=== PATIENT | male | born 1955 | race Caucasian/White ===

== ENCOUNTER 2018-05-10 11:44 | Emergency (ER) | payer SELFPAY ==
[~2018-05-10] VITALS: Ht 180.3 cm; Wt 113.4 kg
[~2018-05-10 11:44] MED LIST changes: -HYDR-4226 PO
[2018-05-10] MEDS ORDERED: meTOprolol TARTRATE 25 MG (LOPRESSOR) TABLET PO ONE (13:00)
[2018-05-10] MEDS ORDERED: HYDR-4226 PO (13:10)
--- NOTE | 2018-05-10 13:10 | ED Cardiac General ---
History of Present Illness General Chief Complaint: Cardiac/General Problems Stated Complaint: BP ISSUES Nursing Triage Note: THE PT IS AMBULATORY TO THE ROOM WITHOUT DIFFICULTY. NO DISTRESS IS SEEN ON ARRIVAL. LOC IS NORMAL FOR THE PT. THE PT WAS SENT HERE BY [facility] FOR HTN. 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 He was seen there after a fall off of culvert yesterday while at work. He had x-ray and CT done showing left shoulder fracture. He was found to be hypertensive and sent here to ER. He is asymptomatic except for left shoulder fracture. . 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 Timing/Duration: constant Severity: moderate Location: central [facility] [employer]IEF CONTROLLER STATION: No ASA po CHIEF CONTROLLER STATION: No Allergies and Home Medications Allergies Coded Allergies: lidocaine (Verified Adverse Reaction, Severe, 07/04/12) hypotension Home Medications Atenolol 25 Mg Tablet, 25 MG PO DAILY, (Reported) Hctz/Telmisartan 1 Each Tablet, 1 EACH PO DAILY, (Reported) Hydrocodone/Acetaminophen 1 Each Tablet, 1 EACH PO Q6H PRN for PAIN-MODERATE Prescribed by: RADHA SARMIENTO on 05/10/18 1310 Patient Home Medication List Home Medication List Reviewed: Yes Review of Systems Review of Systems Constitutional: see HPI EENTM: No Symptoms Reported Respiratory: No Symptoms Reported Cardiovascular: See HPI Gastrointestinal: No Symptoms Reported Genitourinary: No Symptoms Reported Musculoskeletal: see HPI Skin: no symptoms reported Psychiatric/Neurological: No Symptoms Reported Past Ufmgagc-[id number]-Fwiouk Hx Patient Social History Recent Foreign Travel: No Contact w/Someone Who Travel: No Recent Infectious Disease Expo: No Recent Hopitalizations: No Physical Abuse: No Sexual Abuse: No Mistreated: No Fear: No Immunizations Up To Date Tetanus Booster (TDap): Less than 5yrs Seasonal Allergies Seasonal Allergies: No Past Medical History Surgeries: No Respiratory: No Cardiac: No Neurological: No Genitourinary: No Gastrointestinal: No Musculoskeletal: No Endocrine: No HEENT: No Cancer: No Psychosocial: No Integumentary: No Blood Disorders: No Physical Exam Vital Signs Vital Signs - First Documented 05/10/18 12:21 Temp 97.3 Pulse 99 Resp 18 B/P (MAP) 190/130 (150) Pulse Ox 96 Capillary Refill : Less Than 3 Seconds Height, Weight, BMI Height: 5'11.00" Weight: 250lbs. oz. 113.293853gp; BMI Method:Estimated General Appearance: No Apparent Distress, Obese HEENT: PERRL/EOMI, TMs Normal Neck: Full Range of Motion, Normal Inspection Respiratory: No Accessory Muscle Use, No Respiratory Distress Cardiovascular: Regular Rate, Rhythm, Normal Peripheral Pulses Gastrointestinal: Normal Bowel Sounds, Non Tender, Soft Extremity: Normal Capillary Refill, Normal Inspection, Other (limited range of motion left shoulder due to pain.) Neurologic/Psychiatric: Alert, Oriented x3 Skin: Normal Color, Warm/Dry Progress/Results/Core Measures Results/Orders Lab Results Laboratory Tests Test 05/10/18 13:15 Range/Units White Blood Count 11.4 H 4.3-11.0 10^3/uL Red Blood Count 5.58 4.35-5.85 10^6/uL Hemoglobin 16.9 13.3-17.7 G/DL Hematocrit 50 40-54 % Mean Corpuscular Volume 89 80-99 FL Mean Corpuscular Hemoglobin 30 25-34 PG Mean Corpuscular Hemoglobin Concent 34 32-36 G/DL Red Cell Distribution Width 13.6 10.0-14.5 % Platelet Count 223 130-400 10^3/uL Mean Platelet Volume 9.4 7.4-10.4 FL Neutrophils (%) (Auto) 56 42-75 % Lymphocytes (%) (Auto) 26 12-44 % Monocytes (%) (Auto) 15 H 0-12 % Eosinophils (%) (Auto) 3 0-10 % Basophils (%) (Auto) 1 0-10 % Neutrophils # (Auto) 6.4 1.8-7.8 X 10^3 Lymphocytes # (Auto) 3.0 1.0-4.0 X 10^3 Monocytes # (Auto) 1.7 H 0.0-1.0 X 10^3 Eosinophils # (Auto) 0.3 0.0-0.3 10^3/uL Basophils # (Auto) 0.1 0.0-0.1 10^3/uL Sodium Level 141 135-145 MMOL/L Potassium Level 3.7 3.6-5.0 MMOL/L Chloride Level 102 98-107 MMOL/L Carbon Dioxide Level 27 21-32 MMOL/L Anion Gap 12 5-14 MMOL/L Blood Urea Nitrogen 9 7-18 MG/DL Creatinine 1.12 0.60-1.30 MG/DL Estimat Glomerular Filtration Rate > 60 BUN/Creatinine Ratio 8 Glucose Level 119 H 70-105 MG/DL Calcium Level 10.1 8.5-10.1 MG/DL Corrected Calcium 8.5-10.1 MG/DL Total Bilirubin 2.2 H 0.1-1.0 MG/DL Aspartate Amino Transf (AST/SGOT) 54 H 5-34 U/L Alanine Aminotransferase (ALT/SGPT) 83 H 0-55 U/L Alkaline Phosphatase 73 40-136 U/L Total Protein 8.3 H 6.4-8.2 GM/DL Albumin 4.8 H 3.2-4.5 GM/DL My Orders Orders - RADHA SARMIENTO APRN Cbc With Automated Diff (05/10/18 12:48) Comprehensive Metabolic Panel (05/10/18 12:48) Ekg Tracing (05/10/18 12:48) Metoprolol Tartrate (Ir) Tab (Lopressor (05/10/18 13:00) Hydrocodone/Apap 5/325 Tablet (Lortab 5 (05/10/18 13:15) Medications Given in ED Current Medications Medications Dose Ordered Sig/Kylie Route Start Time Stop Time Status Last Admin Dose Admin Acetaminophen/ Hydrocodone Bitart 1 tab ONCE ONCE PO 05/10/18 13:15 05/10/18 13:16 DC 05/10/18 13:22 1 TAB Metoprolol Tartrate 25 mg ONCE ONCE PO 05/10/18 13:00 05/10/18 13:01 DC 05/10/18 13:24 25 MG Vital Signs/I&O 05/10/18 12:21 Temp 97.3 Pulse 99 Resp 18 B/P (MAP) 190/130 (150) Pulse Ox 96 Blood Pressure Mean: 150 Departure Impression Primary Impression: Injury of left shoulder Qualified Codes: S49.92XA - Unspecified injury of left shoulder and upper arm , initial encounter Additional Impressions: Hypertension Qualified Codes: I10 - Essential (primary) hypertension Shoulder fracture, left Qualified Codes: S42.92XA - Fracture of left shoulder girdle, part unspecified , initial encounter for closed fracture Elevated liver enzymes Disposition: HOME, SELF-CARE Condition: Stable Departure-Patient Inst. Decision time for Depature: 13:09 Referrals: MASOUD LOVELACE MD (PCP/Family) Primary Care Physician Patient Instructions: High Blood Pressure (DC) Add. Discharge Instructions: 1. Follow-up with your doctor next week for control blood pressure. Your liver enzymes are also elevated. Follow-up with primary care to address this 2. Return to ER for any concerns. Do not drive while taking pain medication. Sling as directed. All discharge instructions reviewed with patient and/or family. Voiced understanding. Scripts Hydrocodone/Acetaminophen (Roberta 5-325 Tablet) 1 Each Tablet 1 EACH PO Q6H PRN for PAIN-MODERATE MDD 10, #14 TAB Prov: RADHA SARMIENTO APRN 05/10/18 RADHA SARMIENTO APRN May 10, 2018 13:10
[2018-05-10] MEDS ORDERED: HYDROcodone/APAP 5 MG/325 MG (LORTAB) TAB PO ONE (13:15)
[2018-05-10 13:20] LABS: BASOPHILS # (AUTO) 0.1 10^3/uL (0.0-0.1); BASOPHILS % (AUTO) 1 % (0-10); EOSINOPHILS # (AUTO) 0.3 10^3/uL (0.0-0.3); EOSINOPHILS % (AUTO) 3 % (0-10); HEMATOCRIT 50 % (40-54); HEMOGLOBIN 16.9 G/DL (13.3-17.7); LYMPHOCYTES % (AUTO) 26 % (12-44); MEAN CORPUSCULAR HEMOGLOBIN 30 PG (25-34); MEAN CORPUSCULAR HGB CONC 34 G/DL (32-36); MEAN CORPUSCULAR VOLUME 89 FL (80-99); MEAN PLATELET VOLUME 9.4 FL (7.4-10.4); MONOCYTES # (AUTO) 1.7 X 10^3 (0.0-1.0); MONOCYTES % (AUTO) 15 % (0-12); NEUTROPHILS # (AUTO) 6.4 X 10^3 (1.8-7.8); NEUTROPHILS % (AUTO) 56 % (42-75); PLATELET COUNT 223 10^3/uL (130-400); RED BLOOD COUNT 5.58 10^6/uL (4.35-5.85); RED CELL DISTRIBUTION WIDTH 13.6 % (10.0-14.5); WHITE BLOOD COUNT 11.4 10^3/uL (4.3-11.0)
--- OUTSIDE RECORDS SUMMARY | 2018-05-10 13:28 | XMS REPORT ---
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
[2018-05-10 13:44] LABS: ALANINE AMINOTRANSFERASE 83 U/L (0-55); ALBUMIN 4.8 GM/DL (3.2-4.5); ALKALINE PHOSPHATASE 73 U/L (40-136); BILIRUBIN,TOTAL 2.2 MG/DL (0.1-1.0); BUN/CREATININE RATIO 8; CALCIUM 10.1 MG/DL (8.5-10.1); CARBON DIOXIDE 27 MMOL/L (21-32); CHLORIDE 102 MMOL/L (98-107); CREATININE SERUM 1.12 MG/DL (0.60-1.30); GFR ESTIMATED > 60; GLUCOSE 119 MG/DL (70-105); POTASSIUM 3.7 MMOL/L (3.6-5.0); SODIUM 141 MMOL/L (135-145); TOTAL PROTEIN 8.3 GM/DL (6.4-8.2)
[2018-05-10 13:54] VITALS: BP 190/130
== END 2018-05-10 14:02 | disposition home or self-care (01) ==
LOC: EDUNIT# 11:44 → ER 11:46
DX: S42.92XA Fracture of left shoulder girdle, part unspecified, initial encounter for closed fracture (principal); I10 Essential (primary) hypertension; R94.5 Abnormal results of liver function studies; Z88.4 Allergy status to anesthetic agent; X58.XXXA Exposure to other specified factors, initial encounter
CPT/HCPCS: 36415; 80053; 85025; 93005

== ENCOUNTER → 2018-05-10 | Outpatient (REF) ==
[~2018-05-10] MED LIST: ATEN-155 PO; HYDR-4226 PO; IBP800T PO; TELM1TAB3 PO
--- NOTE | 2018-05-10 10:14 | Diagnostic Imaging Report ---
INDICATION: Fall with left shoulder pain. TIME OF EXAM: 10:18 a.m. Three views of the left shoulder were obtained. There is a obliquely noted lucency involving the proximal left humerus near the neck and questionable cortical interruption medially. This is only seen on one view but does remains suspicious for a fracture, nondisplaced. Glenohumeral and acromioclavicular alignment are normal. Acromiohumeral space is normal. The AP view does show some lucency in the region of the acromion. This too is suspicious for a fracture. IMPRESSION: Suspicious lucency in the region of the humeral neck, as described. This is only seen on one view. CT through the left shoulder would be useful for further evaluation to evaluate for fracture. There are also findings suspicious for an acromial fracture. Findings were discussed with YOANDY Wiggins Dictated by: Dictated on workstation # [id number]
--- NOTE | 2018-05-10 10:59 | Diagnostic Imaging Report ---
PROCEDURE: CT left upper extremity without contrast. TECHNIQUE: Multiple contiguous axial images were obtained through the left shoulder without the use of intravenous contrast. INDICATION: Shoulder pain after fall. COMPARISON: Shoulder radiographs of 04/30/2018. FINDINGS: There is an acute fracture of the posterior aspect of the acromion. The fracture has a simple sagittal orientation along the posterior cortex and there is a fracture gap diastasis of approximately 4 mm. No other displacement of the fracture fragment is present. The fracture line corresponds to the central origin of the deltoid muscle. The posterior rim of the glenoid has a loosened fracture line through it although the margins appear somewhat sclerotic. There is no depression of the glenoid rim and no displacement of the fracture fragment. There is no acute fracture of the humeral neck. Glenohumeral alignment is normal. Acromioclavicular alignment is also normal with mild degenerative change. A moderate-sized glenohumeral joint effusion is present. There is also fluid in the subacromial subdeltoid space. There is questionable fluid within the expected region of the distal supraspinatus and infraspinatus tendons raising the possibility of rotator cuff tear. IMPRESSION: 1. Acute fracture of the posterior acromion cortex which has approximately 4 mm of diastasis. 2. No proximal humeral fracture. 3. Age-indeterminate but potentially acute nondisplaced fracture of the posterior rim of the glenoid. 4. Large glenohumeral joint effusion with potential full-thickness tears of the supraspinatus and infraspinatus. As patient's symptoms allow, MRI could be performed for further assessment. Dictated by: Dictated on workstation # [id number]
--- NOTE | 2018-05-10 15:25 | Diagnostic Imaging Report ---
PROCEDURE: MRI left upper extremity without contrast. TECHNIQUE: Multiplanar, multisequence MR imaging of the left shoulder was performed without contrast. COMPARISON: CT shoulder performed earlier same day. INDICATION: Left shoulder pain after injury. FINDINGS: Rotator cuff: Massive superior rotator cuff tear includes complete tears of the supraspinatus and infraspinatus with the torn fibers retracted to the level of the glenohumeral joint. Moderate fatty atrophy is present in the muscle bellies indicative of chronic tears. Tendinopathy of the subscapularis which remains intact. Teres minor is intact. Glenoid labrum: Degenerative tearing of the labral margins are present. Long head of biceps: Long head of biceps has intracapsular tearing and tendinopathy with a few fibers potentially remain intact. Bones and cartilage: No proximal humeral fracture. No glenohumeral chondromalacia. Acromion fracture is better appreciated on recent CT. Additionally, the posterior glenoid rim fracture is also better seen on CT. Large subacromial spur is present. Soft tissues: [id number] glenohumeral joint effusion. No MRI findings to suggest adhesive capsulitis. Fluid fills the subacromial and subdeltoid bursa compatible with full-thickness cuff tear. IMPRESSION: 1. Massive rotator cuff tear includes complete tears of the supraspinatus and infraspinatus which are retracted to the level of the glenohumeral joint. Fatty atrophy of the muscle bellies indicate that these tears are chronic in nature. 2. Long head of biceps has intracapsular tearing and a few fibers may remain intact. 3. Please see CT report for details of the acromion and glenoid fractures. 4. Large subacromial spur can predispose to subacromial impingement. Dictated by: Dictated on workstation # [id number]
== END | disposition home or self-care (01) ==
LOC: RAD 09:43
PROVIDERS: ATTEND Nurse Practitioner Family
CPT/HCPCS: 73030; 73200; 73221

== ENCOUNTER → 2018-05-10 | Outpatient (REF) | END | disposition home or self-care (01) | LOC: RAD 10:21 | PROVIDERS: ATTEND Nurse Practitioner Family ==

== ENCOUNTER → 2018-05-10 | Outpatient (REF) | END | disposition home or self-care (01) | LOC: RAD 13:52 | PROVIDERS: ATTEND Nurse Practitioner Family ==